=== PATIENT | female | born 1950 | race Two or more races ===

== ENCOUNTER 2018-11-12 13:16 | Emergency (ER) | payer SELFPAY ==
[~2018-11-12] VITALS: Ht 154.9 cm; Wt 55.0 kg
[2018-11-12 16:24] VITALS: BP 155/84
== END 2018-11-12 16:25 | disposition home or self-care (01) ==
LOC: ER 13:16
DX: S80.01XA Contusion of right knee, initial encounter (principal); S60.222A Contusion of left hand, initial encounter; W18.39XA Other fall on same level, initial encounter; E11.9 Type 2 diabetes mellitus without complications; Y93.89 Activity, other specified; Y92.89 Other specified places as the place of occurrence of the external cause; Y99.8 Other external cause status
CPT/HCPCS: 82962; 99283